=== PATIENT | female | born 1980 | race African-American/Black ===

== ENCOUNTER 2023-03-13 13:41 | Emergency (ER) | payer OTHER ==
[~2023-03-13] VITALS: Ht 160 cm; Wt 105.0 kg
[2023-03-13 13:43] VITALS: O2SAT 98
[2023-03-13 15:56] LABS: BASOPHILS % 0.4 % (0.0-2.0); DIFFERENTIAL COMMENT 0; EOSINOPHILS % 5.4 % (0.0-5.0); HEMATOCRIT. 39.6 % (36.0-48.0); HEMOGLOBIN. 12.8 g/dL (12.0-16.0); LYMPHOCYTES % 23.2 % (20.0-50.0); MEAN CORPUSCULAR HEMOGLOBIN 24.3 pg (28.0-32.0); MEAN CORPUSCULAR HGB CONC 32.3 g/dL (31.0-37.0); MEAN CORPUSCULAR VOLUME 75.2 fL (81.0-99.0); MEAN PLATELET VOLUME 8.4 fl (7.4-10.4); MONOCYTES % 5.2 % (2.0-8.0); NEUTROPHILS % 65.8 % (40.0-76.0); PLATELET 341 x1000/uL (130-400); RED BLOOD CELL COUNT 5.27 mill/uL (4.2-5.4); RED CELL DISTRIBUTION WIDTH 17.9 % (11.6-14.6); WHITE BLOOD COUNT 10.3 x1000/uL (4.5-11.0)
[2023-03-13 16:09] LABS: HCG SCREEN NEGATIVE
[2023-03-13 16:11] LABS: ALANINE AMINOTRANSFERASE 17 IU/L (10-49); ALBUMIN 4.6 g/dL (3.2-4.8); ASPARTATE AMINOTRANSFERASE 16 IU/L (<34); BILIRUBIN TOTAL 0.2 mg/dL (0.1-1.0); CALCIUM 10.1 mg/dL (8.7-10.4); CARBON DIOXIDE 30 mEq/L (21-32); CHLORIDE 102 mEq/L (98-107); CREATININE 0.9 mg/dL (0.6-1.0); GLUCOSE 112 mg/dL (70-105); POTASSIUM 3.7 mEq/L (3.5-5.1); PROTEIN TOTAL 8.3 g/dL (6.0-8.3); SODIUM 138 mEq/L (136-145); UREA NITROGEN BLOOD 12 mg/dL (9-23)
[2023-03-13] MEDS ORDERED: BENZ200C52 MT (17:00)
[2023-03-13] MEDS ORDERED: CEPH500C2 MT (17:11)
[2023-03-13 17:35] VITALS: BP 147/95; PULSE 88; RESP 14; TEMP 99.1
== END 2023-03-13 17:39 | disposition home or self-care (01) ==
LOC: ER 13:41
DX: R05.1 Acute cough (principal); E11.9 Type 2 diabetes mellitus without complications; I10 Essential (primary) hypertension
CPT/HCPCS: 36415; 71045; 80053; 82962; 84703; 85025; 99284

== ENCOUNTER 2023-06-12 09:21 | Emergency (ER) | payer MEDICAID ==
[~2023-06-12] VITALS: Ht 162.6 cm; Wt 114.0 kg
[~2023-06-12 09:21] MED LIST: ASPI-1160 PO; FAMO20TA8 PO; INSU100I13 SQ; INSU100I28 SQ; LIP40 PO; LISI20TA31 PO; SYN150 PO
[2023-06-12 09:31] VITALS: BP 112/67; PULSE 90; RESP 18; TEMP 98.6; O2SAT 100
[2023-06-12] MEDS ORDERED: [UNRECOGNIZED DRUG - CODE] MC (10:36)
[2023-06-12] MEDS ORDERED: POLY17PO3 MT (10:36)
== END 2023-06-12 10:51 | disposition home or self-care (01) ==
LOC: ER 09:21
DX: Z76.0 Encounter for issue of repeat prescription (principal); I10 Essential (primary) hypertension; E11.9 Type 2 diabetes mellitus without complications; Z79.4 Long term (current) use of insulin; Z91.041 Radiographic dye allergy status; Z88.6 Allergy status to analgesic agent; Z88.4 Allergy status to anesthetic agent; Z79.899 Other long term (current) drug therapy
CPT/HCPCS: 99281

== ENCOUNTER 2023-06-21 18:50 | Emergency (ER) | payer MEDICAID ==
[~2023-06-21] VITALS: Ht 162.6 cm; Wt 113.0 kg
[~2023-06-21 18:50] MED LIST changes: +POLY17PO3 MT; +[UNRECOGNIZED DRUG - CODE] MC
[2023-06-21 18:52] VITALS: O2SAT 99
[2023-06-21 19:47] LABS: BASOPHILS % 0.7 % (0.0-2.0); DIFFERENTIAL COMMENT 0; EOSINOPHILS % 3.7 % (0.0-5.0); HEMATOCRIT. 37.8 % (36.0-48.0); HEMOGLOBIN. 12.9 g/dL (12.0-16.0); LYMPHOCYTES % 21.5 % (20.0-50.0); MEAN CORPUSCULAR HEMOGLOBIN 26.6 pg (28.0-32.0); MEAN CORPUSCULAR HGB CONC 34.1 g/dL (31.0-37.0); MEAN PLATELET VOLUME 8.5 fl (7.4-10.4); MONOCYTES % 5.3 % (2.0-8.0); NEUTROPHILS % 68.8 % (40.0-76.0); PLATELET 263 x1000/uL (130-400); RED BLOOD CELL COUNT 4.85 mill/uL (4.2-5.4); RED CELL DISTRIBUTION WIDTH 16.6 % (11.6-14.6)
[2023-06-21 19:57] LABS: HCG SCREEN NEGATIVE
[2023-06-21 20:03] LABS: ALANINE AMINOTRANSFERASE 13 IU/L (10-49); ALBUMIN 4.3 g/dL (3.2-4.8); ASPARTATE AMINOTRANSFERASE 17 IU/L (<34); BILIRUBIN TOTAL 0.3 mg/dL (0.1-1.0); CALCIUM 9.1 mg/dL (8.7-10.4); CARBON DIOXIDE 27 mEq/L (21-32); CHLORIDE 102 mEq/L (98-107); CREATININE 0.9 mg/dL (0.6-1.0); GLUCOSE 116 mg/dL (70-105); POTASSIUM 3.8 mEq/L (3.5-5.1); PROTEIN TOTAL 7.1 g/dL (6.0-8.3); SODIUM 137 mEq/L (136-145); TROPONIN I HIGH SENSITIVITY < 4 ng/L (3.0-34); UREA NITROGEN BLOOD 16 mg/dL (9-23)
[2023-06-21 21:30] VITALS: BP 138/72; PULSE 72; RESP 18; TEMP 98.3
== END 2023-06-21 21:30 | disposition home or self-care (01) ==
LOC: ER 19:00
DX: R53.1 Weakness (principal); E11.9 Type 2 diabetes mellitus without complications; I10 Essential (primary) hypertension; Z88.8 Allergy status to other drugs, medicaments and biological substances
CPT/HCPCS: 36415; 71045; 80053; 83880; 84484; 84703; 85025; 93005; 99285

== ENCOUNTER 2023-07-12 16:39 | Emergency (ER) | payer MEDICAID, OTHER ==
[~2023-07-12] VITALS: Ht 162.6 cm; Wt 127.0 kg
[2023-07-12 16:41] VITALS: BP 123/88; PULSE 89; RESP 20; TEMP 98.7; O2SAT 98
[2023-07-12 17:30] LABS: BASOPHILS % 0.8 % (0.0-2.0); DIFFERENTIAL COMMENT 0; EOSINOPHILS % 3.1 % (0.0-5.0); HEMATOCRIT. 38.3 % (36.0-48.0); HEMOGLOBIN. 12.7 g/dL (12.0-16.0); LYMPHOCYTES % 17.1 % (20.0-50.0); MEAN CORPUSCULAR HGB CONC 33.1 g/dL (31.0-37.0); MEAN CORPUSCULAR VOLUME 78.4 fL (81.0-99.0); MEAN PLATELET VOLUME 8.5 fl (7.4-10.4); MONOCYTES % 3.4 % (2.0-8.0); NEUTROPHILS % 75.6 % (40.0-76.0); PLATELET 327 x1000/uL (130-400); RED BLOOD CELL COUNT 4.89 mill/uL (4.2-5.4); RED CELL DISTRIBUTION WIDTH 16.2 % (11.6-14.6); WHITE BLOOD COUNT 11.9 x1000/uL (4.5-11.0)
[2023-07-12 17:41] LABS: PROTHROMBIN TIME 11.4 sec (9.6-11.0)
[2023-07-12 17:44] LABS: HCG SCREEN NEGATIVE
[2023-07-12 17:47] LABS: ALANINE AMINOTRANSFERASE 12 IU/L (10-49); ALBUMIN 4.5 g/dL (3.2-4.8); ASPARTATE AMINOTRANSFERASE 12 IU/L (<34); BILIRUBIN TOTAL 0.3 mg/dL (0.1-1.0); CALCIUM 9.5 mg/dL (8.7-10.4); CARBON DIOXIDE 27 mEq/L (21-32); CHLORIDE 106 mEq/L (98-107); GLUCOSE 165 mg/dL (70-105); POTASSIUM 3.8 mEq/L (3.5-5.1); SODIUM 140 mEq/L (136-145); UREA NITROGEN BLOOD 12 mg/dL (9-23)
[2023-07-12] MEDS ORDERED: POLY17PO3 MT (20:54)
== END 2023-07-12 21:10 | disposition home or self-care (01) ==
LOC: ER 16:39
DX: R10.9 Unspecified abdominal pain (principal); E11.9 Type 2 diabetes mellitus without complications; I10 Essential (primary) hypertension; E03.9 Hypothyroidism, unspecified; Z91.040 Latex allergy status; Z88.6 Allergy status to analgesic agent; Z88.8 Allergy status to other drugs, medicaments and biological substances
CPT/HCPCS: 36415; 74176; 80053; 84703; 85025; 99284

== ENCOUNTER 2023-11-25 12:19 | Emergency (ER) | payer MEDICAID, OTHER ==
[~2023-11-25] VITALS: Ht 160 cm; Wt 82.0 kg
[2023-11-25 12:34] VITALS: TEMP 98.6; O2SAT 97
[2023-11-25 14:26] LABS: BASOPHILS % 0.6 % (0.0-2.0); DIFFERENTIAL COMMENT 0; EOSINOPHILS % 3.2 % (0.0-5.0); LYMPHOCYTES % 18.1 % (20.0-50.0); MEAN CORPUSCULAR HEMOGLOBIN 25.6 pg (28.0-32.0); MEAN CORPUSCULAR HGB CONC 32.6 g/dL (31.0-37.0); MEAN CORPUSCULAR VOLUME 78.6 fL (81.0-99.0); MEAN PLATELET VOLUME 8.5 fl (7.4-10.4); MONOCYTES % 4.7 % (2.0-8.0); NEUTROPHILS % 73.4 % (40.0-76.0); PLATELET 311 x1000/uL (130-400); RED BLOOD CELL COUNT 5.09 mill/uL (4.2-5.4); RED CELL DISTRIBUTION WIDTH 17.7 % (11.6-14.6); WHITE BLOOD COUNT 10.8 x1000/uL (4.5-11.0)
[2023-11-25 14:27] LABS: HCG SCREEN NEGATIVE
[2023-11-25 14:56] LABS: CHLORIDE 104 mEq/L (98-107); POTASSIUM 3.7 mEq/L (3.5-5.1); SODIUM 136 mEq/L (136-145)
[2023-11-25 14:57] LABS: CALCIUM 10.2 mg/dL (8.7-10.4); CARBON DIOXIDE 27 mEq/L (21-32)
[2023-11-25 15:02] LABS: CREATININE 0.8 mg/dL (0.6-1.0); GLUCOSE 99 mg/dL (70-105); UREA NITROGEN BLOOD 16 mg/dL (9-23)
[2023-11-25 15:04] LABS: ALANINE AMINOTRANSFERASE 12 IU/L (10-49); ALBUMIN 4.6 g/dL (3.2-4.8); ASPARTATE AMINOTRANSFERASE 16 IU/L (<34); BILIRUBIN TOTAL 0.3 mg/dL (0.1-1.0); PROTEIN TOTAL 8.1 g/dL (6.0-8.3)
[2023-11-25 15:07] LABS: BILIRUBIN DIRECT < 0.1 mg/dL (<=3.0)
[2023-11-25] MEDS ORDERED: IBUPROFEN 600MG TABLET PO SCH (15:30)
[2023-11-25 15:49] LABS: CLARITY URINE CLEAR (CLEAR); COLOR URINE YELLOW (YELLOW); GLUCOSE URINE NEGATIVE (NEGATIVE); KETONES URINE NEGATIVE (NEGATIVE); LEUKOCYTE ESTERASE URINE TRACE (NEGATIVE); NITRITE URINE NEGATIVE (NEGATIVE); OCCULT BLOOD URINE 3+ (NEGATIVE); PH URINE 6.5 (4.5-8.0); PROTEIN URINE NEGATIVE (NEGATIVE); SPECIFIC GRAVITY URINE 1.014 (1.005-1.030); UROBILINOGEN URINE 0.2 E.U./dL (0.2-1.0)
[2023-11-25] MEDS: IBUPROFEN 600MG TABLET PO STA (16:05)
[2023-11-25 16:06] LABS: BACTERIA URINE NONE SEEN; SQUAMOUS EPITHELIAL CELL URINE FEW /lpf (RARE/1+); WBC URINE 0-2 /hpf (0-2)
[2023-11-25] MEDS ORDERED: IBUP-2028 MT (16:23)
[2023-11-25 16:53] VITALS: BP 137/86; PULSE 70; RESP 10; O2SAT 98
== END 2023-11-25 16:54 | disposition home or self-care (01) ==
LOC: ER 12:19
DX: K62.89 Other specified diseases of anus and rectum (principal); M54.9 Dorsalgia, unspecified; E11.9 Type 2 diabetes mellitus without complications; E78.00 Pure hypercholesterolemia, unspecified; I10 Essential (primary) hypertension; E03.9 Hypothyroidism, unspecified; Z98.890 Other specified postprocedural states; Z88.8 Allergy status to other drugs, medicaments and biological substances; Z79.899 Other long term (current) drug therapy
CPT/HCPCS: 36415; 74176; 80048; 80076; 81003; 81025; 84703; 85025; 99284

== ENCOUNTER 2024-02-09 18:30 | Emergency (ER) | payer MEDICAID ==
[~2024-02-09] VITALS: Ht 157.5 cm; Wt 98.0 kg
[~2024-02-09 18:30] MED LIST changes: +IBUP-2028 MT
[2024-02-09 18:31] VITALS: O2SAT 100
[2024-02-09 20:01] LABS: BASOPHILS % 0.6 % (0.0-2.0); DIFFERENTIAL COMMENT 0; EOSINOPHILS % 3.1 % (0.0-5.0); HEMATOCRIT. 40.1 % (36.0-48.0); HEMOGLOBIN. 13.4 g/dL (12.0-16.0); LYMPHOCYTES % 36.4 % (20.0-50.0); MEAN CORPUSCULAR HEMOGLOBIN 26.6 pg (28.0-32.0); MEAN CORPUSCULAR HGB CONC 33.4 g/dL (31.0-37.0); MEAN CORPUSCULAR VOLUME 79.7 fL (81.0-99.0); MEAN PLATELET VOLUME 8.2 fl (7.4-10.4); MONOCYTES % 5.3 % (2.0-8.0); NEUTROPHILS % 54.6 % (40.0-76.0); PLATELET 254 x1000/uL (130-400); RED BLOOD CELL COUNT 5.03 mill/uL (4.2-5.4); RED CELL DISTRIBUTION WIDTH 17.7 % (11.6-14.6); WHITE BLOOD COUNT 9.3 x1000/uL (4.5-11.0)
[2024-02-09 20:08] LABS: CHLORIDE 106 mEq/L (98-107); POTASSIUM 3.7 mEq/L (3.5-5.1); SODIUM 137 mEq/L (136-145)
[2024-02-09 20:09] LABS: CALCIUM 9.8 mg/dL (8.7-10.4); CARBON DIOXIDE 27 mEq/L (21-32)
[2024-02-09 20:14] LABS: GLUCOSE 172 mg/dL (70-105)
[2024-02-09 20:15] LABS: UREA NITROGEN BLOOD 16 mg/dL (9-23)
[2024-02-09 20:16] LABS: ALANINE AMINOTRANSFERASE 13 IU/L (10-49); ALBUMIN 4.3 g/dL (3.2-4.8); ASPARTATE AMINOTRANSFERASE 15 IU/L (<34)
[2024-02-09 20:17] LABS: BILIRUBIN TOTAL 0.4 mg/dL (0.1-1.0); PROTEIN TOTAL 7.9 g/dL (6.0-8.3)
[2024-02-09 20:18] LABS: HCG SCREEN NEGATIVE
[2024-02-09 20:35] LABS: BILIRUBIN DIRECT < 0.1 mg/dL (<=3.0)
[2024-02-09 21:30] VITALS: BP 116/79; PULSE 90; RESP 16; TEMP 36.72516; O2SAT 100
[2024-02-09] MEDS: FAMOTIDINE 20MG TABLET PO NR (21:30)
[2024-02-09] MEDS: ONDANSETRON 4MG ODT PO NR (21:30)
[2024-02-09] MEDS: KETOROLAC 30MG/ML VIAL IM NR (21:30)
== END 2024-02-09 21:40 | disposition home or self-care (01) ==
LOC: ER 18:30
DX: A05.9 Bacterial foodborne intoxication, unspecified (principal); I10 Essential (primary) hypertension; E78.00 Pure hypercholesterolemia, unspecified; E11.9 Type 2 diabetes mellitus without complications; E03.9 Hypothyroidism, unspecified; Z79.899 Other long term (current) drug therapy; Z91.041 Radiographic dye allergy status; Z79.82 Long term (current) use of aspirin
CPT/HCPCS: 80076; 80048; 84703; 83690; 85025; 36415; 96372; 99283; Q0162; J1885; Z7610

== ENCOUNTER 2024-02-25 05:27 | Emergency (ER) | payer MEDICAID ==
[~2024-02-25] VITALS: Ht 160 cm; Wt 122.8 kg
[2024-02-25 05:46] VITALS: O2SAT 99
[2024-02-25 05:47] VITALS: BP 142/84; PULSE 85; RESP 16; O2SAT 98
[2024-02-25 06:11] VITALS: TEMP 98.1
[2024-02-25] MEDS: FAMOTIDINE 20MG TABLET PO ONE (06:11)
[2024-02-25] MEDS: ACETAMINOPHEN 325MG TABLET PO ONE (06:11)
[2024-02-25 06:36] LABS: BASOPHILS % 0.6 % (0.0-2.0); DIFFERENTIAL COMMENT 0; EOSINOPHILS % 2.5 % (0.0-5.0); HEMATOCRIT. 40.5 % (36.0-48.0); HEMOGLOBIN. 13.6 g/dL (12.0-16.0); LYMPHOCYTES % 30.9 % (20.0-50.0); MEAN CORPUSCULAR HEMOGLOBIN 26.8 pg (28.0-32.0); MEAN CORPUSCULAR HGB CONC 33.6 g/dL (31.0-37.0); MEAN CORPUSCULAR VOLUME 79.9 fL (81.0-99.0); MEAN PLATELET VOLUME 8.3 fl (7.4-10.4); MONOCYTES % 5.7 % (2.0-8.0); NEUTROPHILS % 60.3 % (40.0-76.0); PLATELET 302 x1000/uL (130-400); RED BLOOD CELL COUNT 5.06 mill/uL (4.2-5.4); RED CELL DISTRIBUTION WIDTH 16.7 % (11.6-14.6); WHITE BLOOD COUNT 8.7 x1000/uL (4.5-11.0)
[2024-02-25 06:38] LABS: CHLORIDE 103 mEq/L (98-107); POTASSIUM 3.8 mEq/L (3.5-5.1); SODIUM 137 mEq/L (136-145)
[2024-02-25 06:39] LABS: CARBON DIOXIDE 29 mEq/L (21-32)
[2024-02-25 06:39] LABS: CLARITY URINE CLEAR (CLEAR); COLOR URINE YELLOW (YELLOW); GLUCOSE URINE NEGATIVE (NEGATIVE); KETONES URINE NEGATIVE (NEGATIVE); LEUKOCYTE ESTERASE URINE TRACE (NEGATIVE); NITRITE URINE NEGATIVE (NEGATIVE); OCCULT BLOOD URINE NEGATIVE (NEGATIVE); PH URINE 5.5 (4.5-8.0); PROTEIN URINE NEGATIVE (NEGATIVE); SPECIFIC GRAVITY URINE 1.013 (1.005-1.030); UROBILINOGEN URINE 0.2 E.U./dL (0.2-1.0)
[2024-02-25 06:44] LABS: CREATININE 0.9 mg/dL (0.6-1.0); GLUCOSE 104 mg/dL (70-105); UREA NITROGEN BLOOD 17 mg/dL (9-23)
[2024-02-25 06:46] LABS: ALANINE AMINOTRANSFERASE 14 IU/L (10-49); ALBUMIN 4.6 g/dL (3.2-4.8); ASPARTATE AMINOTRANSFERASE 16 IU/L (<34); BILIRUBIN TOTAL 0.4 mg/dL (0.1-1.0); PROTEIN TOTAL 8.6 g/dL (6.0-8.3)
[2024-02-25 06:54] LABS: HCG SCREEN NEGATIVE
[2024-02-25 07:17] LABS: BILIRUBIN DIRECT < 0.1 mg/dL (<=3.0)
[2024-02-25 07:18] LABS: TROPONIN I HIGH SENSITIVITY < 4 ng/L (3.0-34)
[2024-02-25 08:17] LABS: BACTERIA URINE 2+; RBC URINE 0-2 /hpf (0-2); SQUAMOUS EPITHELIAL CELL URINE 1+ /lpf (RARE/1+); YEAST URINE NONE SEEN
== END 2024-02-25 09:13 | disposition home or self-care (01) ==
LOC: ER 05:27
DX: R10.84 Generalized abdominal pain (principal); R07.89 Other chest pain; R51.9 Headache, unspecified; E11.9 Type 2 diabetes mellitus without complications; E03.9 Hypothyroidism, unspecified; E78.00 Pure hypercholesterolemia, unspecified; I10 Essential (primary) hypertension; Z79.899 Other long term (current) drug therapy; Z95.0 Presence of cardiac pacemaker
CPT/HCPCS: 36415; 71045; 74176; 80048; 80076; 81003; 84484; 84703; 85025; 93005; 99285

== ENCOUNTER 2024-03-08 23:12 | Emergency (ER) | payer MEDICAID ==
[~2024-03-08] VITALS: Ht 154.9 cm; Wt 122.0 kg
[2024-03-08 23:33] VITALS: O2SAT 98
[2024-03-08 23:43] VITALS: BP 150/87; PULSE 90; RESP 18; TEMP 98; O2SAT 98
[2024-03-09] MEDS ORDERED: ONDANSETRON HCL 4MG TABLET PO ONE
[2024-03-09 00:23] LABS: BASOPHILS % 0.2 % (0.0-2.0); EOSINOPHILS % 1.6 % (0.0-5.0); HEMATOCRIT. 41.3 % (36.0-48.0); HEMOGLOBIN. 13.8 g/dL (12.0-16.0); MEAN CORPUSCULAR HEMOGLOBIN 26.6 pg (28.0-32.0); MEAN CORPUSCULAR HGB CONC 33.3 g/dL (31.0-37.0); MEAN PLATELET VOLUME 8.4 fl (7.4-10.4); MONOCYTES % 3.3 % (2.0-8.0); NEUTROPHILS % 86.9 % (40.0-76.0); PLATELET 277 x1000/uL (130-400); RED BLOOD CELL COUNT 5.16 mill/uL (4.2-5.4); RED CELL DISTRIBUTION WIDTH 16.6 % (11.6-14.6); WHITE BLOOD COUNT 11.9 x1000/uL (4.5-11.0)
[2024-03-09 00:25] LABS: POTASSIUM 4.2 mEq/L (3.5-5.1)
[2024-03-09 00:26] LABS: CALCIUM 9.8 mg/dL (8.7-10.4)
[2024-03-09 00:31] LABS: CREATININE 1.2 mg/dL (0.6-1.0)
[2024-03-09 00:34] LABS: ALANINE AMINOTRANSFERASE 14 IU/L (10-49); ALBUMIN 4.4 g/dL (3.2-4.8); ASPARTATE AMINOTRANSFERASE 14 IU/L (<34); BILIRUBIN DIRECT < 0.1 mg/dL (<=3.0); BILIRUBIN TOTAL 0.4 mg/dL (0.1-1.0); PROTEIN TOTAL 8.1 g/dL (6.0-8.3)
[2024-03-09 00:54] LABS: HCG SCREEN NEGATIVE
[2024-03-09] MEDS ORDERED: ONDANSETRON HCL 4MG TABLET PO NR (02:30)
== END 2024-03-09 04:00 | disposition left against medical advice (07) ==
LOC: ER 23:21
DX: R11.2 Nausea with vomiting, unspecified (principal); E78.00 Pure hypercholesterolemia, unspecified; E11.9 Type 2 diabetes mellitus without complications; E03.9 Hypothyroidism, unspecified; I10 Essential (primary) hypertension; Z79.899 Other long term (current) drug therapy; Z79.82 Long term (current) use of aspirin; Z95.0 Presence of cardiac pacemaker; Z91.041 Radiographic dye allergy status
CPT/HCPCS: 36415; 80048; 80076; 84703; 85025; 99283

== ENCOUNTER 2024-05-19 07:21 | Emergency (ER) | payer MEDICAID, OTHER ==
[~2024-05-19] VITALS: Ht 154.9 cm; Wt 125.0 kg
[2024-05-19 07:31] VITALS: O2SAT 100
[2024-05-19 08:59] LABS: BASOPHILS % 0.4 % (0.0-2.0); EOSINOPHILS % 1.7 % (0.0-5.0); HEMATOCRIT. 42.5 % (36.0-48.0); HEMOGLOBIN. 13.8 g/dL (12.0-16.0); LYMPHOCYTES % 17.4 % (20.0-50.0); MEAN CORPUSCULAR HGB CONC 32.5 g/dL (31.0-37.0); MEAN PLATELET VOLUME 8.4 fl (7.4-10.4); MONOCYTES % 3.3 % (2.0-8.0); NEUTROPHILS % 77.2 % (40.0-76.0); PLATELET 288 x1000/uL (130-400); RED BLOOD CELL COUNT 5.32 mill/uL (4.2-5.4); RED CELL DISTRIBUTION WIDTH 15.1 % (11.6-14.6); WHITE BLOOD COUNT 13.5 x1000/uL (4.5-11.0)
[2024-05-19 09:08] LABS: HCG SCREEN NEGATIVE
[2024-05-19 09:11] LABS: CHLORIDE 105 mEq/L (98-107); POTASSIUM 4.1 mEq/L (3.5-5.1); SODIUM 141 mEq/L (136-145)
[2024-05-19 09:12] LABS: CALCIUM 9.7 mg/dL (8.7-10.4); CARBON DIOXIDE 30 mEq/L (21-32)
[2024-05-19 09:17] LABS: CREATININE 0.9 mg/dL (0.6-1.0); GLUCOSE 133 mg/dL (70-105); UREA NITROGEN BLOOD 11 mg/dL (9-23)
[2024-05-19 09:19] LABS: CREATINE KINASE 201 IU/L (34-145)
[2024-05-19 09:26] LABS: PROTHROMBIN TIME 11.4 sec (9.6-11.0)
[2024-05-19 09:40] LABS: TROPONIN I HIGH SENSITIVITY < 4 ng/L (3.0-34)
[2024-05-19 09:42] LABS: BG BASE EXCESS 2.2 mmol/L (-2.0-3.0); BG CARBOXYHEMOGLOBIN 2.2 % (0.5-1.5); BG DEOXYHEMOGLOBIN 0.5 % (0.0-5.0); BG FRACTION INSPIRED OXYGEN 60; BG HCO3 ACT 27.1 mmol/L (21.0-28.0); BG METHEMOGLOBIN 0.1 % (0.5-1.5); BG OXYGEN SATURATION 99.5 % (94.0-98.0); BG OXYHEMOGLOBIN 97.2 % (94.0-98.0); BG PCO2 42.8 mmHg (32.0-45.0); BG PH 7.419 (7.350-7.450); BG SAMPLE SITE LEFT RADIAL; BG TOTAL HEMOGLOBIN 14.4 g/dL (12.0-16.0); BG VENT MODE MASK - NRB-PARTIAL
[2024-05-19 11:29] LABS: TROPONIN I HIGH SENSITIVITY < 4 ng/L (3.0-34)
[2024-05-19 12:57] VITALS: BP 125/70; PULSE 90; RESP 16; TEMP 37.2; O2SAT 100
== END 2024-05-19 12:59 | disposition home or self-care (01) ==
LOC: ER 07:33
DX: T58.94XA Toxic effect of carbon monoxide from unspecified source, undetermined, initial encounter (principal); Y92.89 Other specified places as the place of occurrence of the external cause; E03.9 Hypothyroidism, unspecified; E11.9 Type 2 diabetes mellitus without complications; E78.00 Pure hypercholesterolemia, unspecified; I10 Essential (primary) hypertension; Z79.82 Long term (current) use of aspirin; Z79.899 Other long term (current) drug therapy; Z91.041 Radiographic dye allergy status; Z95.0 Presence of cardiac pacemaker
CPT/HCPCS: 36415; 36600; 71045; 80048; 82375; 82550; 82805; 83605; 84484; 84703; 85025; 93005; 99285

== ENCOUNTER 2024-06-21 19:26 | Emergency (ER) | payer MEDICAID, OTHER ==
[~2024-06-21] VITALS: Ht 162.6 cm; Wt 155.0 kg
[2024-06-21 19:40] VITALS: O2SAT 100
[2024-06-21 19:49] VITALS: BP 140/91; PULSE 81; RESP 18; TEMP 36.9; O2SAT 99
[2024-06-21] MEDS: ONDANSETRON 4MG ODT PO ONE (21:16)
== END 2024-06-21 23:20 | disposition home or self-care (01) ==
LOC: ER 19:26
DX: R10.9 Unspecified abdominal pain (principal); R11.2 Nausea with vomiting, unspecified; R19.7 Diarrhea, unspecified; Z95.0 Presence of cardiac pacemaker; E11.9 Type 2 diabetes mellitus without complications; I10 Essential (primary) hypertension; E78.00 Pure hypercholesterolemia, unspecified; E03.9 Hypothyroidism, unspecified; Z79.82 Long term (current) use of aspirin; Z79.899 Other long term (current) drug therapy; Z91.041 Radiographic dye allergy status
CPT/HCPCS: 99283; Q0162

== ENCOUNTER 2024-07-07 10:09 | Emergency (ER) | payer MEDICAID ==
[~2024-07-07] VITALS: Ht 162.6 cm; Wt 126.0 kg
[2024-07-07 10:13] VITALS: O2SAT 98
[2024-07-07] MEDS: IBUPROFEN 800MG TABLET PO ONE (12:52)
[2024-07-07] MEDS: TRAMADOL 50MG TABLET PO ONE (12:52)
[2024-07-07] MEDS: ACETAMINOPHEN 500MG TABLET PO ONE (12:56)
[2024-07-07] MEDS ORDERED: NAPR-681 MT (16:03)
[2024-07-07 16:32] VITALS: BP 119/84; PULSE 94; RESP 16; TEMP 37; O2SAT 98
== END 2024-07-07 16:32 | disposition home or self-care (01) ==
LOC: ER 10:09
DX: S80.02XA Contusion of left knee, initial encounter (principal); E03.9 Hypothyroidism, unspecified; E11.9 Type 2 diabetes mellitus without complications; E78.00 Pure hypercholesterolemia, unspecified; I10 Essential (primary) hypertension; Z79.82 Long term (current) use of aspirin; Z79.899 Other long term (current) drug therapy; Z88.0 Allergy status to penicillin; Z91.041 Radiographic dye allergy status; Z95.0 Presence of cardiac pacemaker; W19.XXXA Unspecified fall, initial encounter; Y93.89 Activity, other specified; Y92.89 Other specified places as the place of occurrence of the external cause; Y99.8 Other external cause status
CPT/HCPCS: 73560; 81025; 99283